=== PATIENT | female | born 1945 | race Caucasian/White ===

== ENCOUNTER 2021-05-30 08:46 | Outpatient (CLI) | payer MEDICARE | END 2021-05-30 08:47 | disposition home or self-care (01) | LOC: LABBT 08:46 | PROVIDERS: ATTEND Internal Medicine Cardiovascular Disease | DX: Z01.812 Encounter for preprocedural laboratory examination (principal); I48.0 Paroxysmal atrial fibrillation; Z20.822 Contact with and (suspected) exposure to COVID-19; Z91.81 History of falling | CPT/HCPCS: 80053; 85027; 85610; 86850; 86900; 86901; U0003; U0005 ==

== ENCOUNTER 2021-05-30 09:00 | Inpatient (IN) | payer MEDICARE ==
[2021-05-30 10:02] LABS: Hemoglobin 13.7 g/dL (12.0-15.5); Mean Corpuscular HGB CONC 31.6 g/dL (32.0-36.0); Mean Corpuscular Hemoglobin 30.3 pg (27.0-33.0); Mean Platelet Volume 10.5 fl (7.4-10.4); Platelet Count 257 10x3/uL (150-450); RBC Distribution Width 14.2 % (11.5-14.5); Red Blood Cell (RBC) Count 4.52 10x6/uL (3.90-5.03); White Blood Cell (WBC) Count 7.7 10x3/uL (3.5-10.5)
[2021-05-30 10:25] LABS: INR-International Normal Ratio 0.9
[2021-05-30 10:46] LABS: ALT (SGPT) 24 U/L (8-55); AST (SGOT) 21 U/L (5-34); Albumin 3.6 g/dL (3.4-4.8); Alkaline Phosphatase 87 U/L (40-110); Anion Gap 13 mmol/L (10-20); BUN (Urea Nitrogen) 13 mg/dL (9.8-20.1); Bilirubin, Total 0.5 mg/dL (0.2-1.2); Calc. Creatinine Clearance 0 mL/min (70-130); Calcium 8.8 mg/dL (7.8-10.44); Carbon Dioxide 26 mmol/L (23-31); Chloride 104 mmol/L (98-107); Globulin 2.7 g/dL (2.4-3.5); Glucose 93 mg/dL (83-110); Potassium 4.7 mmol/L (3.5-5.1); Protein, Total 6.3 g/dL (5.8-8.1); Sodium 138 mmol/L (136-145)
[2021-05-31 03:07] LABS: SARS-CoV-2 PCR by NAA Not Detected (NotDetected)
[2021-06-02] MEDS ORDERED: Heparin 10,000 UNITS/ 10 ML VIAL ONE (09:34)
[2021-06-02] MEDS ORDERED: Iopamidol 370 76% 100 ML VIAL ONE (09:34)
[2021-06-02] MEDS ORDERED: Ondansetron PF 4 MG/2 ML Vial ONE (10:01)
[2021-06-02] MEDS ORDERED: Ketorolac Tromethamine 30 MG/ML VIAL ONE (10:01)
[2021-06-02] MEDS ORDERED: PROPOFOL 200 MG/20 ML VIAL ONE (10:01)
[2021-06-02] MEDS ORDERED: Lidocaine 1% PF 5 ML VIAL ONE (10:01)
[2021-06-02] MEDS ORDERED: Dexamethasone 20 MG/5 ML VIAL ONE (10:01)
[2021-06-02] MEDS ORDERED: Rocuronium Bromide 10 MG/ML (10ML VIAL) ONE (10:01)
[2021-06-02] MEDS ORDERED: GLYCOPYRROLATE/PF 0.2 MG/ML VIAL ONE (10:01)
[2021-06-02 10:29] VITALS: BMI 35.4
[2021-06-02] MEDS ORDERED: Protamine Sulfate 50 MG/5 ML VIAL ONE (10:57)
== END 2021-06-02 15:15 | disposition home or self-care (01) | DRG 274 ==
LOC: SURG A 06-02 07:21 → EDSTATUS 06-02 09:00
PROVIDERS: ADMIT Internal Medicine Cardiovascular Disease; ATTEND Internal Medicine Cardiovascular Disease
PROC: 02L73DK Occlusion of Left Atrial Appendage with Intraluminal Device, Percutaneous Approach (ICD-10-PCS; principal; 2021-06-02)
PROC: B24BZZ4 Ultrasonography of Heart with Aorta, Transesophageal (ICD-10-PCS; 2021-06-02)
DX: I48.0 Paroxysmal atrial fibrillation (principal); I10 Essential (primary) hypertension; Z20.822 Contact with and (suspected) exposure to COVID-19; E03.9 Hypothyroidism, unspecified; Z96.653 Presence of artificial knee joint, bilateral; Z85.820 Personal history of malignant melanoma of skin; Z90.710 Acquired absence of both cervix and uterus; Z90.49 Acquired absence of other specified parts of digestive tract; Z98.51 Tubal ligation status
CPT/HCPCS: 36430; 80053; 85027; 85347; 85610; 86850; 86900; 86901; 93312; C1759; C1776; J1100; J1644; J1885; J2405; J2704; J2720; J3490; Q9967; U0003; U0005

== ENCOUNTER 2021-07-08 11:19 | Outpatient (CLI) | payer MEDICARE ==
[2021-07-08 13:24] LABS: INR-International Normal Ratio 1.3; Prothrombin Time 14.5 sec (9.5-12.1)
[2021-07-09 21:22] LABS: SARS-CoV-2 PCR by NAA Not Detected (NotDetected)
== END 2021-07-08 11:20 | disposition home or self-care (01) ==
LOC: LABBT 11:19
PROVIDERS: ATTEND Internal Medicine Cardiovascular Disease
DX: Z01.812 Encounter for preprocedural laboratory examination (principal); I48.0 Paroxysmal atrial fibrillation; Z20.822 Contact with and (suspected) exposure to COVID-19
CPT/HCPCS: 85610; U0003; U0005

== ENCOUNTER 2021-07-12 08:03 | Day surgery (SDC) | payer MEDICARE ==
[2021-07-06 13:45] VITALS: BMI 35.5
[2021-07-12] MEDS ORDERED: PROPOFOL 40 ML ONE (11:13)
[2021-07-12] MEDS ORDERED: Lidocaine 1% PF 5 ML VIAL ONE (11:35)
== END 2021-07-12 12:48 | disposition home or self-care (01) ==
LOC: SDC 08:03
PROVIDERS: ATTEND Internal Medicine Cardiovascular Disease
PROC: B246ZZ4 Ultrasonography of Right and Left Heart, Transesophageal (ICD-10-PCS; principal; 2021-07-12)
DX: I48.0 Paroxysmal atrial fibrillation (principal); E89.0 Postprocedural hypothyroidism; I10 Essential (primary) hypertension; Z91.81 History of falling; Z79.01 Long term (current) use of anticoagulants; Z79.82 Long term (current) use of aspirin; Z79.890 Hormone replacement therapy; Z79.899 Other long term (current) drug therapy; Z95.818 Presence of other cardiac implants and grafts
CPT/HCPCS: 93312; J2704

== ENCOUNTER 2025-02-26 11:08 | Outpatient (CLI) | payer MEDICARE | END 2025-02-26 11:09 | disposition home or self-care (01) | LOC: RAD 11:08 | PROVIDERS: ATTEND Physician Assistant | DX: I48.0 Paroxysmal atrial fibrillation (principal) | CPT/HCPCS: 71046 ==